=== PATIENT | female | born 1965 | race Caucasian/White ===

== ENCOUNTER 2021-12-17 00:08 | Day surgery (SDC) | payer OTHER, SELFPAY ==
[2021-12-11 09:44] VITALS: BMI 36.8
--- NOTE | 2021-12-11 10:05 | PC.NURSE ---
Report to the Outpatient Waiting Room, entrance under the green pavilion located off [facility], at time 0600 on date 12/17/21. OR Time: 0730. - You and your visitor will be asked a series of questions to screen for COVID 19 for your protection. - Only one visitor is allowed at this time. - The patient visitor is requested to leave or wait in car when not with patient. - A mask is required within the hospital. Patients may have clear liquids (water, carbonated beverages, clear teas, apple juice) until 3 hours prior to surgery with a maximum of 20 ounces. - No food from midnight until time of surgery Take the following medications with a SIP of water the morning of surgery: LEXAPRO, PAIN PILL (IF NEEDED) Medications to discontinue per physician: VITAMINS/SUPPLEMENTS Date to take last dose: 12/13/21 ST[address] B[address]LOFEN INSTRU[address] DR. HOOKER Please no make-up, nail swedish, hairspray, perfume, deodorant, or body powder the day of surgery. No jewelry (including any body piercings) or valuables the day of surgery, leave them at home. Please take a shower or bath the night before, or the morning of, surgery with an antibacterial soap. Wear comfortable, loose fitting clothing. - Jewelry must be removed prior to entering the operating room. Rings and piercings that are not removed may be cut off. - The hospital will not accept responsibility for valuables. - Please leave all valuables, including medications, at home the day of surgery. If you are going home after surgery, a licensed bulk truck driver must drive you home. - NO public transportation without another adult. - We recommend that an adult stay with you for 24 hours following discharge. - We also recommend that you do not drive, make important decision, drink alcoholic beverages, or take any drugs that were not prescribed by your health care provider for at least 24 hours after your discharge time. Follow any additional instructions given to you from your surgeon. If you or anyone in your household have experienced Covid symptoms in the past week, please notify your surgeon or the nurse liaison at the phone number below for possible testing. Telephone instructions given to PT - TERI JAIN and asked if any additional questions and then verbalized understanding. Patient advised to call surgeon office or pre surgery nurse liaison [phone] if any additional questions.
--- NOTE | 2021-12-16 15:02 | WPDANESEPPF ---
Anes - Initial Pre Proc Eval Procedure: Operation Date: 12/17/21 07:30 Proposed Procedures p Reposition and Replacement of Spinal Cord Stimulator Pulse Generator - Macho Hoffman MD Date/Time: 12/16/21 15:02 Surgeon: Macho Hoffman MD Pre Op Diagnosis: Spinal Cord Stimul Battery End of Serv Patient Data Age: 56 Gender: F Height: 1.63 m Weight: 97.52 kg Allergies Allergy/AdvReac Type Severity Reaction Status Date / Time No Known Allergies Allergy Verified 12/11/21 09:35 Home Medications Medication Instructions Recorded Confirmed Type baclofen 10 mg tablet 10 mg PO DAILY PRN Muscle Pain 12/11/21 12/11/21 History ergocalciferol (vitamin D2) 1,250 1,250 mcg PO WEEKLY 12/11/21 12/11/21 History mcg (50,000 unit) capsule escitalopram oxalate 20 mg tablet 20 mg PO DAILY 12/11/21 12/11/21 History fluticasone propionate 50 1 spray intranasal DAILY PRN 12/11/21 12/11/21 History mcg/actuation nasal Allergy Symptoms spray,suspension lisinopril 10 mg tablet 10 mg PO DAILY 12/11/21 12/11/21 History morphine 15 mg tablet,extended 15 mg PO BID PRN Pain 12/11/21 12/11/21 History release multivitamin 1 tablet PO DAILY 12/11/21 12/11/21 History oxycodone-acetaminophen 10 mg-325 1 tablet PO Q4-6H PRN Pain 12/11/21 12/11/21 History mg tablet potassium chloride 10 mEq 10 meq PO DAILY 12/11/21 12/11/21 History tablet,extended release pramipexole 1 mg tablet 1 mg PO HS 12/11/21 12/11/21 History rabeprazole 20 mg tablet,delayed 20 mg PO DAILY 12/11/21 12/11/21 History release triamcinolone acetonide 0.1 % 1 applic topical TID 12/11/21 12/11/21 History topical cream triamterene 37.5 1 tablet PO DAILY 12/11/21 12/11/21 History mg-hydrochlorothiazide 25 mg tablet zolpidem 10 mg tablet 10 mg PO HS 12/11/21 12/11/21 History Patient hx anesthesia problems: none Family hx anesthesia problems: none Results Review: All pre-operative results and documents have been reviewed as part of the pre-operative evaluation. ON LICENSE OF [facility] Past Medical History Medical History (Updated 12/16/21 @ 15:04 by Gentry Cohen MD) Back pain Chronic GERD Chronic narcotic use Depression HTN (hypertension) Obesity Surgical History Surgical History (Updated 12/16/21 @ 15:04 by Gentry Cohen MD) H/O gastric bypass Social History Social History Smoking packs per day: 1.25 Smoking cigarettes per day: 25.0 Years smoked: 42 Smoking pack-years: 52.50 Smoking status: Current every day smoker Tobacco type: cigarettes Alcohol intake: never Substance use: never Living arrangements: with family Spiritual care concerns: No Anes - Eval Final PreProcedure Day of Procedure 12/16/21 15:02 Patient weight: obese Heart: regular rate and rhythm Lungs: clear to auscultation and normal air movement Airway: Mallampati scale class II Neurological: alert and oriented Last oral intake: >/= 8 hours ASA classification: III Emergent: no Anesthetic plan: proceed Anesthesia type and monitoring: general ETT Results Review: All pre-operative results and documents have been reviewed as part of the pre-operative evaluation. Informed Consent: The patient's anesthetic plan and its attendant risks and benefits were discussed with the patient/family/POA. Questions were solicited and answers provided to the satisfaction of the patient/family/POA.
[2021-12-17] VITALS (7 sets, daily range): BP systolic 105–164; BP diastolic 40–107; PULSE 71–82; RESP 12–18; TEMP 36.2–36.6; O2SAT 94–100
[2021-12-17] MEDS: LACTATED RINGERS 1,000 ML 30 ML IV CONT ×2 (06:23→08:59)
[2021-12-17 06:39] LABS: Anion Gap 7 mmol/L (8-16); Blood Urea Nitrogen 8 mg/dL (7-17); Calcium 9.2 mg/dL (8.4-10.2); Carbon Dioxide 35 mmol/L (22-30); Chloride 88 mmol/L (98-107); Estimated CRCL calculation 100 ml/min; Estimated Glomerular Filt Rate > 60; Glucose 114 mg/dL (65-110); Potassium 3.9 mmol/L (3.4-5.0); Sodium 130 mmol/L (137-145)
--- NOTE | 2021-12-17 07:02 | PM.IMHP ---
H&P: HPI History of Present Illness Date/Time: 12/17/21 07:02 Chief Complaint: SCS IPG out of service Narrative: 56F with thoracic perc Peoples/[employer] SCS placed by Dr. Hardin at [place] in 2011. Battery nearing end of service. Hoping for MRI safe system. Also patient finds battery in uncomfortable position. Has lbp that radiates to both legs down to feet left worse than right. 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 No history of spine surgery. When SCS off 10/24. When on -08/24. No blood thinner or Aspirin. Review of Systems Constitutional: Constitutional: Reports difficulty sleeping and Reports fatigue ENT: Reports system reviewed and no additional complaints, except as documented (hearing loss) Cardiovascular: Comments: leg cramps, elevated BP Gastrointestinal: Gastrointestinal: Reports bloating and Reports vomiting Genitourinary: Comments: change in sex drive Musculoskeletal: Musculoskeletal: Reports back pain, Reports arthralgias, Reports neck pain and Reports stiffness Neurologic: Reports abnormal gait and Reports numbness Psychiatric: Psychiatric: Reports anxiety PMFSH Past Medical History Medical History (Updated 12/16/21 @ 15:04 by Gentry Cohen MD) Back pain Chronic GERD Chronic narcotic use Depression HTN (hypertension) Obesity Surgical History Surgical History (Updated 12/16/21 @ 15:04 by Gentry Cohen MD) H/O gastric bypass Social History Social History Smoking packs per day: 1.25 Smoking cigarettes per day: 25.0 Years smoked: 42 Smoking pack-years: 52.50 Smoking status: Current every day smoker Tobacco type: cigarettes Alcohol intake: never Substance use: never Living arrangements: with family Spiritual care concerns: No Meds Home Medications and Allergies Home Medications Medication Instructions Recorded Confirmed Type baclofen 10 mg tablet 10 mg PO DAILY PRN Muscle Pain 12/11/21 12/11/21 History ergocalciferol (vitamin D2) 1,250 1,250 mcg PO WEEKLY 12/11/21 12/11/21 History mcg (50,000 unit) capsule escitalopram oxalate 20 mg tablet 20 mg PO DAILY 12/11/21 12/11/21 History fluticasone propionate 50 1 spray intranasal DAILY PRN 12/11/21 12/11/21 History mcg/actuation nasal Allergy Symptoms spray,suspension lisinopril 10 mg tablet 10 mg PO DAILY 12/11/21 12/11/21 History morphine 15 mg tablet,extended 15 mg PO BID PRN Pain 12/11/21 12/11/21 History release multivitamin 1 tablet PO DAILY 12/11/21 12/11/21 History oxycodone-acetaminophen 10 mg-325 1 tablet PO Q4-6H PRN Pain 12/11/21 12/11/21 History mg tablet potassium chloride 10 mEq 10 meq PO DAILY 12/11/21 12/11/21 History tablet,extended release pramipexole 1 mg tablet 1 mg PO HS 12/11/21 12/11/21 History rabeprazole 20 mg tablet,delayed 20 mg PO DAILY 12/11/21 12/11/21 History release triamcinolone acetonide 0.1 % 1 applic topical TID 12/11/21 12/11/21 History topical cream triamterene 37.5 1 tablet PO DAILY 12/11/21 12/11/21 History mg-hydrochlorothiazide 25 mg tablet zolpidem 10 mg tablet 10 mg PO HS 12/11/21 12/11/21 History Allergies Allergy/AdvReac Type Severity Reaction Status Date / Time No Known Allergies Allergy Verified 12/11/21 09:35 Exam Narrative: generator in right buttock. discussed flipping it so the battery is a little higher up. Patient thinks that would help make it more comfortable. H&P: Results Labs Labs: [facility] 12/17/21 06:14 Sodium 130 L Potassium 3.9 Chloride 88 L Carbon Dioxide 35 H BUN 8 Creatinine 0.60 L Glucose 114 H Calcium 9.2 Assessment and Plan Assessment and plan (1) Back pain: Code(s): M54.9 - Dorsalgia, unspecified Status: Acute Plan I proposed a replacement of the SCS IPG as well as repositioning of the generator slightly above where it currently sits in order for it to be more comfortable. The nature of the procedure was discusswed with the carey
--- NOTE | 2021-12-17 07:27 | WPDHPUPDATE1 ---
History and Physical Update Update Date/Time: 12/17/21 07:27 History and Physical has been reviewed, including an updated exam of the patient. There are NO changes in the patient's condition. Risks, benefits, and alternatives have been discussed and questions answered. Patient agrees to proceed with procedure.
[2021-12-17] MEDS: ceFAZolin 2 GM/D5W 50 ML 2 GM/50 ML BAG IVPB (07:34)
[2021-12-17] MEDS: LIDO 1%/EPINEPHRINE 1:100,000 50 ML VIAL 20 ML INFILTRATE (08:02)
[2021-12-17] MEDS: ceFAZolin SODIUM 1 GM VIAL (08:03)
--- NOTE | 2021-12-17 09:08 | P.OP_ITS ---
Procedure Note - Detailed Date of Procedure 12/17/21 Pre-op Diagnosis Spinal Cord Stimul Battery End of Service Uncomfortable position of SCS generator Post-op Diagnosis Same Procedure Performed - removal of in situ spinal cord stimulator generator from right subcutaneous pocket - replacement of SCS IPG (Peoples/[employer]aro, multiple array non-rechargeable) - repositioning of SCS IPG into more rostral IPG within the right subcutaneous pocket Surgeon Macho Hoffman MD [employer] Jeana JUNG Anesthesia General Indications This is a 56-year-old woman with a spinal cord stimulator percutaneous thoracic placed in 2011 at [place] for chronic intractable back and leg pain. Her implantable pulse generator is now at the end of its service and she likely replacement, especially with 1 that allows for MRIs. She also finds position of the battery quite uncomfortable and would like to position the little higher up. After discussion of the nature, risks, and expectations of surgery he decided to proceed with the repositioning as well as replacement of her spinal cord stimulator IPG. Findings None Description of Procedure Patient was identified in preop and marked and consent was obtained. She was then transferred to the operating room and placed under general anesthesia and intubated. She was then positioned prone on the operating table with all pressure points appropriately padded. Her previous scar from the incision was marked. She was then prepped and draped in a sterile fashion. She received local anesthetic as well as IV antibiotics prior to starting. A time-out was pe rformed prior to starting. Skin knife to open the incision. The incision was made slightly larger than the scar that was present. And then dissected down to the battery. Taking care not to damage the leads. There was quite a bit of calcification around the battery. The battery was then delivered out of surgical site and the leads were appreciated. A subcutaneous pocket with then fashioned through this existing incision but made rostral to accommodate the new battery at a more comfortable site. We disconnected the leads from the old battery and brought the new battery into the field. The leads were then connected to the new battery. We did has some impedance issues at 1st. The green backup pusher device was used to help position the leads in an appropriate position. Eventually, we were able to get the leads in a position with adequate impedances and the leads were torqued tight into place. The excess wire was placed behind the battery and the battery was placed into the new more rostral subcutaneous pocket. We then decided to close. Thorough Ancef irrigation to the surgical site. The pre-existing caudal IPG pocket was closed with 2-0 Vicryl as to close the space. The incision was then closed with 2-0 Vicryl as in the deeper layers followed by 3-0 Vicryl inverted dermal layer followed by 4-0 subcuticular Monocryl on skin with a Dermabond dressing. Given the new and on typical positioning of the battery and wires, I do recommend the next time this incision is explored for any reason that fluoroscopy be used to appreciate the position of everything. All counts were correct. No complications were encountered. Implants [employer]aro/ Peoples non-rechargeable SCS Multiple array IPG Estimated Blood Loss 20 (20 cc) Drains No Packing No Pathology None sent Complications No immediate complications Condition Stable Disposition Same day
[2021-12-17] MEDS: fentaNYL CITRATE INJ (*CRX) 100 MCG/2 ML VIAL 25 MCG IV PUSH ×3 (09:18→09:30)
--- NOTE | 2021-12-17 09:31 | SUR.PHASEI ---
0930- [place], stimulator rep here in PACU to program spinal stimulator.
[2021-12-17] MEDS: oxyCODONE HCL (*CRX) 5 MG TAB IR PO (10:15)
== END 2021-12-17 10:32 | disposition home or self-care (01) ==
PROVIDERS: Visit Provider Neurological Surgery
PROC: (CPT 63685; principal; 2021-12-17 07:30)
DX: Z45.42 Encounter for adjustment and management of neurostimulator (principal); M54.9 Dorsalgia, unspecified; G89.29 Other chronic pain; I10 Essential (primary) hypertension; K21.9 Gastro-esophageal reflux disease without esophagitis; F32.A Depression, unspecified; E66.9 Obesity, unspecified; Z68.36 Body mass index [BMI] 36.0-36.9, adult; Z79.891 Long term (current) use of opiate analgesic; Z98.84 Bariatric surgery status; F17.210 Nicotine dependence, cigarettes, uncomplicated
CPT/HCPCS: 63685; 36415; 80048; 86850; 86900; 86901; A9270; J0330; J0690; J1100; J2250; J2405; J2704; J3010; J7120